=== PATIENT | female | born 1990 | race African-American/Black ===

== ENCOUNTER 2016-11-10 09:56 | Emergency (ER) ==
[2016-11-10 10:11] VITALS: BP 108/64
--- NOTE | 2016-11-10 10:30 | PROVIDER DOCUMENTATION ---
HPI-EE General <Samina RodriguezRosanna - Last Filed: 11/10/16 10:29> - General Source: patient - History of Present Illness-[facility] Location: reports: nose, throat Quality of Pain: reports: aching Severity: reports: mild Onset/Duration: reports: 3 days ago Timing: reports: still present Prearrival Treatment: Initiated no prearrival treatment Associated Symptoms: reports: cough, fever, nasal congestion/drainage, sore throat Locality of Occurance: Home Similar Symptoms Previously?: Yes Recently seen or treated by another doctor?: No - Ears Ear Problem Symptoms: reports: none - Nose Nose Problem Symptoms: other (congestion) - Throat/Dental Throat/Dental Problem Symptoms: reports: sore throat <Allegra Begum - Last Filed: 11/10/16 10:39> - General Chief Complaint: Cold Symptoms Stated Complaint: DIZZINESS,COUGH,VOMITING Time Seen by Provider: 11/10/16 10:11 Allergies/Adverse Reactions: Patient Allergies Allergy/AdvReac Type Severity Reaction Status Date / Time No Known Allergies Allergy Verified 05/03/16 11:14 Home Medications: Home Medication List Medication Instructions Recorded Confirmed Last Taken Type Sumatriptan Succinate [Imitrex] 50 mg PO PRN PRN #9 tablet 05/03/16 Unknown Rx Amoxicillin [Amoxil] 500 mg PO BID #20 capsule 11/10/16 Unknown Rx - History of Present Illness-[facility] Nature of Presenting Problem: Pt is 25 y/o F presents to the ED with cough, congestion, sore throat, and F. Pt states symptoms have been present for three days. Pt denies N/V/D. (Allegra Begum) Review of Systems - Adult - REVIEW OF SYSTEMS - ADULT Constitutional: reports: fever. denies: chills Eyes: denies: blurred vision, double vision Ears, Nose, Mouth & Throat: reports: sinus problem (congestion), throat pain. denies: ear pain, nose pain Cardiovascular: reports: irregular heart rate (tachy). denies: chest pain, heart murmur Respiratory: reports: cough. denies: shortness of breath, wheezing Gastrointestinal: denies: abdominal pain, diarrhea, nausea, vomiting Genitourinary: denies: dysuria, hematuria Musculoskeletal: denies: bone pain, joint pain, neck pain Integumentary: denies: hives, itching Neurological: denies: dizziness/vertigo, headache/migraines Psychiatric: reports: no symptoms reported Endocrine: reports: no symptoms reported Hematologic/Lymphatic: reports: no symptoms reported Allergic/Immunologic: reports: no symptoms reported All Other Systems: Reviewed and Negative <Allegra Begum - Last Filed: 11/10/16 10:39> Past History - Adult - PAST MEDICAL HISTORY-ADULT Major Childhood Illnesses: reports: denies history Obstetrical/Gynecological: reports: other (G-3 P-2, currently 29 wks ) Neurological: reports: headaches/migraines - PRIOR SURGERIES/PROCEDURES Surgical/Procedure History: reports: none - PRIOR HOSPITALIZATIONS Prior Hospitalizations: reports: for other non-related (child ) - IMMUNIZATION STATUS Childhood Immunizations: See Nurse Assessment Flu Vaccine: See Nurse Assessment - FAMILY HISTORY Family History: reviewed, not pertinent <Samina Rodriguez - Last Filed: 11/10/16 10:29> - PAST MEDICAL HISTORY-ADULT Review of Records: reports: Nursing Assessment Review, Medications Reviewed, Social history reviewed & non-contributory. Major Childhood Illnesses: reports: denies history Cardiovascular: reports: denies history Respiratory: reports: denies history Gastrointestinal: reports: denies history Obstetrical/Gynecological: reports: denies history Genitourinary: reports: denies history Musculoskeletal: reports: denies history Neurological: reports: denies history Endocrine/Immune: reports: denies history Other Conditions: reports: denies history - PRIOR SURGERIES/PROCEDURES Surgical/Procedure History: reports: reviewed, not pertinent - IMMUNIZATION STATUS Childhood Immunizations: See Nurse Assessment Flu Vaccine: See Nurse Assessment - FAMILY HISTORY Family History: reviewed, not pertinent - SOCIAL HISTORY Smoking: denies Substance Use: denies Living Situation: family <Allegra Begum - Last Filed: 11/10/16 10:39> Physical Exam- EENT - Physical Exam EENT Initial Vital Signs Reviewed: Yes General Appearance: appears well, alert, no apparent distress Eye Exam: bilateral eye: normal inspection, PERRL, EOMI Ear Exam: bilateral ear: auricle normal, canal normal, TM normal Nasal Exam: normal inspection Throat Exam: normal mouth inspection, pharynx normal Neck: non-tender, full range of motion, supple, normal inspection Respiratory: chest non-tender, lungs clear, normal breath sounds, no pleuratic chest pain, no respiratory distress, no accessory muscle use Cardiovascular: normal peripheral pulses, no edema, no gallop, no JVD, no murmur , tachycardia Abdominal Exam: normal bowel sounds, non tender, soft, no organomegaly, no pulsatile mass Lymphatic: no adenopathy Back Exam: normal inspection, no CVA tenderness, no vertebral tenderness Extremity: normal range of motion, non-tender, normal gait, normal inspection, no pedal edema, no calf tenderness, normal capillary refill Integumentary: normal color, normal turgor, warm/dry Neurologic: grossly normal Psych/Mental Status: normal mood/affect, oriented x 3 <Allegra Begum - Last Filed: 11/10/16 10:39> Progress <Samina Rodriguez - Last Filed: 11/10/16 10:29> <Allegra Begum - Last Filed: 11/10/16 10:39> - PLAN OF CARE/RESULTS Progress/Plan/Lab Results: Laboratory Tests 11/10/16 11/10/16 10:10 10:10 Influenza A (Rapid) NEGATIVE Influenza B (Rapid) NEGATIVE Group A Strep Rapid NEGATIVE Orders Category Date Time Status Urine Preg [ED: Urine Bedside] ORDERED Care 11/10/16 10:[address] Stat Lab 11/10/16 10:[address] Stat Lab 11/10/16 10:10 Completed Ibuprofen [Motrin] Med 11/10/16 10:37 Discontinued 400 mg .ROUTE .STK-MED ONE Ibuprofen [Motrin] Med 11/10/16 10:32 Discontinued 400 mg PO NOW ONE Vital Signs - 24 hr 11/10/16 10:02 Temperature 103 F H Pulse Rate 111 H Respiratory 18 Rate Blood Pressure 108/64 O2 Sat by Pulse 100 Oximetry (Allegra Begum) Departure - Departure Time of Disposition Order: 10:29 Certified Medical Emergency: Emergent <Samina Rodriguez - Last Filed: 11/10/16 10:29> - Departure Time of Disposition Order: 10:39 Certified Medical Emergency: Emergent <Allegra Begum - Last Filed: 11/10/16 10:39> - Departure DIAGNOSIS: URI, acute Disposition: HOME 01 Condition: Stable Additional Instructions: Tylenol and Motrin for pain ED Follow Up Instructions: You have been treated by a care provider in the Emergency Department. These instructions are being provided to you so you can have an understanding of how to care for yourself upon discharge. Upon discharge from the Emergency Department, you are responsible for making arrangements for follow-up care by a physician of your choice. Take all prescribed medications as directed. Return to the Emergency Department immediately for any new or worsening symptoms. You may call the Physician Referral phone number at [phone] to obtain a list of Physicians who are taking new patients. Prescriptions: Amoxicillin [Amoxil] 500 mg PO BID #20 capsule Referrals: Josee Faith MD [Primary Care Provider] - Attestation - Scribe Verification/Attestation Scribe:: Allegra Beugm Acting as Scribe for:: Samina Rodriguez Scribe documention review:: This chart was documented by a scribe and accurately reflects the service the provider performed and the decisions made by the provider. <Allegra Begum - Last Filed: 11/10/16 10:39> Physician Attestation
[2016-11-10] MEDS ORDERED: MOTRIN PO ONE (10:32)
[2016-11-10] MEDS ORDERED: MOTRIN ONE (10:37)
== END 2016-11-10 10:43 | disposition home or self-care (01) ==
LOC: P.ED 09:56
DX: J06.9 Acute upper respiratory infection, unspecified (principal); R05 Cough; R09.81 Nasal congestion; J02.9 Acute pharyngitis, unspecified; R50.9 Fever, unspecified; R00.0 Tachycardia, unspecified; R51 Headache
CPT/HCPCS: 87081; 87430; 87804; 99283